=== PATIENT | female | born 1945 | race Caucasian/White ===

== ENCOUNTER 2016-12-06 15:52 | Emergency (ER) | payer MEDICARE ==
[~2016-12-06] VITALS: Ht 154.9 cm; Wt 54.0 kg
[~2016-12-06 15:52] MED LIST: DIURETIC; ZEBETA; [UNRECOGNIZED DRUG - REMARK]
[2016-12-06] MEDS ORDERED: LEVO88TA2 PO (16:26)
[2016-12-06] MEDS ORDERED: ATOR10TA PO (16:26)
[2016-12-06] MEDS ORDERED: OXYB10TA PO (16:27)
[2016-12-06] MEDS ORDERED: HYDR25TA4 PO (16:27)
[2016-12-06] MEDS ORDERED: LORA1TAB PO (16:28)
--- NOTE | 2016-12-06 16:50 | NUR ---
chaperoned md with vaginal exam.
[2016-12-06 17:10] LABS: *BILIRUBIN,URIN NEGATIVE (NEGATIVE); *BLOOD, URINE 2+ (NEGATIVE); *CLARITY,URINE HAZY (CLEAR); *COLOR,URINE YELLOW (YELLOW); *KETONES,URINE NEGATIVE (NEGATIVE); *PROTEIN,URINE NEGATIVE (NEGATIVE); *UROBILINOGEN,URINE 0.2 E.U./dl (NORMAL); LEUKOCYTE ESTERASE ,URINE 1+ (NEGATIVE); NITRITE, URINE NEGATIVE (NEGATIVE); PH,URINE 5.5 (5.0-8.0); UGLUCOSE NEGATIVE (NEGATIVE)
[2016-12-06 17:15] LABS: MUCUS,URINE MANY /LPF (0-FEW); SQUAMOUS EPITHELIAL CELL,UR FEW /HPF (NONE SEEN); WBC,URINE 20-50 /HPF (0-3)
--- NOTE | 2016-12-06 17:30 | NUR ---
DR FOUNTAIN MADE PATIENT AWARE OF TEST RESULTS WILL BE DC HOME.
[2016-12-06 17:45] VITALS: BP 129/80
--- NOTE | 2016-12-06 17:46 | NUR ---
Patient discharged to home in stable conditon. Written and verbal after care instructions given. Patient verbalizes understanding of instructions.
== END 2016-12-06 17:47 | disposition home or self-care (01) ==
LOC: ER 15:52
DX: N39.0 Urinary tract infection, site not specified (principal); I10 Essential (primary) hypertension; K21.9 Gastro-esophageal reflux disease without esophagitis; F32.9 Major depressive disorder, single episode, unspecified
CPT/HCPCS: A4663

== ENCOUNTER 2017-02-02 05:25 | Emergency (ER) | payer MEDICARE ==
[~2017-02-02] VITALS: Ht 154.9 cm; Wt 49.4 kg
[~2017-02-02 05:25] MED LIST changes: +ATOR10TA PO; +HYDR25TA4 PO; +LEVO88TA2 PO; +LORA1TAB PO; +OXYB10TA PO
[2017-02-02] MEDS ORDERED: BISO5TAB7 PO (05:44)
--- NOTE | 2017-02-02 05:46 | NUR ---
Pt RAMYA MARROQUIN, reports she has had n/v/d since about 0430 yesterday. Pt c/o n/v/d, thinks she may have drank OJ, and lower midline ABD pain. [id number]. Also c/o dizziness, but denies CP, SOB, no other complaints, minor distress noted.
[2017-02-02] MEDS ORDERED: IV NORMAL SALINE 1000 ML BAG IV ONE (06:00)
[2017-02-02] MEDS ORDERED: diphenhydrAMINE 50 MG/1 ML VIAL IV ONE (06:00)
[2017-02-02] MEDS ORDERED: PROCHLORPERAZINE EDISYLATE 10 MG/2 ML VIAL IV ONE (06:00)
[2017-02-02] MEDS ORDERED: PROCHLORPERAZINE EDISYLATE 10 MG/2 ML VIAL ONE (06:18)
[2017-02-02] MEDS ORDERED: diphenhydrAMINE 50 MG/1 ML VIAL ONE (06:18)
--- NOTE | 2017-02-02 06:41 | NUR ---
Pt feeling better, no nausea. Pt not able to give a urine sample yet, does not want catherter.
[2017-02-02 06:59] LABS: BASOPHILS % (AUTO) 0.2 % (0.0-2.0); EOSINOPHILS % (AUTO) 0.6 % (0.0-7.0); HEMATOCRIT 38.5 % (37-47); HEMOGLOBIN 13.4 G/DL (12.0-16.0); LYMPHOCYTES # (AUTO) 0.9 K/UL (0.8-4.8); LYMPHOCYTES % (AUTO) 11.1 % (20.5-51.5); MEAN CORPUSCULAR HEMOGLOBIN 32.2 UUG (27.0-31.0); MEAN CORPUSCULAR HGB CONC 35 g/dL (32.0-37.0); MEAN CORPUSCULAR VOLUME 92.4 FL (81.0-99.0); MONOCYTES # (AUTO) 0.6 K/UL (0.1-1.30); MONOCYTES % (AUTO) 7.2 % (0.0-11.0); NEUTROPHILS # (AUTO) 6.8 K/UL (1.8-8.9); NEUTROPHILS % (AUTO) 80.9 % (38.5-71.5); PLATELET COUNT (AUTO) 221 K/UL (150-450); RED BLOOD CELL COUNT(AUTO) 4.16 MIL/UL (4.2-5.4); WHITE BLOOD COUNT (AUTO) 8.3 K/UL (4.0-11.2)
[2017-02-02 07:19] LABS: BILIRUBIN,DIRECT 0.1 mg/dL (0.0-0.2); BILIRUBIN,TOTAL 0.6 mg/dL (0.2-1.0); CREATININE 0.6 mg/dL (0.6-1.3)
[2017-02-02 07:44] LABS: POTASSIUM 2.9 mmol/L (3.5-5.1)
--- NOTE | 2017-02-02 07:53 | NUR ---
pt assisted to the bathroom. voided, urine specimen collected from [facility]. pt reports some diarrhea. nausea reduced from earlier. lower abdominal discomfort. reassessment by Dr. [place].
[2017-02-02] MEDS ORDERED: POTASSIUM CHLORIDE 20 MEQ TAB.PRT.SR PO ONE (08:00)
--- NOTE | 2017-02-02 08:02 | NUR ---
1 liter total infused.
[2017-02-02] MEDS ORDERED: POTASSIUM CHLORIDE 20 MEQ TAB.PRT.SR ONE (08:16)
[2017-02-02 08:24] LABS: *BILIRUBIN,URIN NEGATIVE (NEGATIVE); *BLOOD, URINE Trace-intact (NEGATIVE); *CLARITY,URINE CLOUDY (CLEAR); *COLOR,URINE YELLOW (YELLOW); *KETONES,URINE 1+ (NEGATIVE); *PROTEIN,URINE NEGATIVE (NEGATIVE); *UROBILINOGEN,URINE 0.2 E.U./dl (NORMAL); LEUKOCYTE ESTERASE ,URINE NEGATIVE (NEGATIVE); NITRITE, URINE NEGATIVE (NEGATIVE); PH,URINE 7.5 (5.0-8.0); UGLUCOSE NEGATIVE (NEGATIVE)
--- NOTE | 2017-02-02 08:39 | NUR ---
after s/l d/c'd and direct pressure to site for 1 full clock minute, there was some bleeding from the site. direct pressure applied for 3 more clock minutes. no more bleeding observed. assisted to private car by and observed by staff. got into car safely.
[2017-02-02 08:42] VITALS: BP 123/68
[2017-02-02 08:51] LABS: RBC,URINE 0-3 /HPF (0-3)
[2017-02-02 08:52] LABS: BACTERIA,URINE FEW /HPF (NONE SEEN); SQUAMOUS EPITHELIAL CELL,UR FEW /HPF (NONE SEEN); URINE AMORPHOUS PHOSPHATES MANY /HPF; WBC,URINE NONE SEEN /HPF (0-3)
== END 2017-02-02 08:35 | disposition home or self-care (01) ==
LOC: ER 05:27
DX: E86.0 Dehydration (principal); R11.2 Nausea with vomiting, unspecified; G62.9 Polyneuropathy, unspecified; R19.7 Diarrhea, unspecified; I10 Essential (primary) hypertension; E78.5 Hyperlipidemia, unspecified; K21.9 Gastro-esophageal reflux disease without esophagitis; F32.9 Major depressive disorder, single episode, unspecified
CPT/HCPCS: 36415; 70030-TC; 71010; 83605; 85025; 85730; 87040; 87086; 93005; A4663; J0780; J1200; J7030